=== PATIENT | male | born 1980 | race Two or more races ===

== ENCOUNTER 2024-07-12 13:26 | Emergency (ER) | payer OTHER ==
[~2024-07-12] VITALS: Ht 182.9 cm; Wt 72.6 kg
[2024-07-12] MEDS ORDERED: INDAPAMIDE1.25 MG PO (14:10)
[2024-07-12] MEDS ORDERED: NORVASC5 MG PO (14:10)
[2024-07-12] MEDS ORDERED: KETOROLAC TROMETHAMINE 10 MG TABLET PO STA (16:00)
[2024-07-12] MEDS ORDERED: KETOROLAC TROMETHAMINE 10 MG TABLET PO ONE (16:36)
[2024-07-12 16:42] LABS: HEMATOCRIT 44.9 % (39.0-48.0); HEMOGLOBIN 15.4 g/dL (13-16.00); MEAN CELL VOLUME 88.2 fL (80.0-100.00); MEAN CORPUSCULAR HEMOGLOBIN 30.3 pg (27.00-32.0); MEAN CORPUSCULAR HGB CONC 34.4 g/dl (32.0-36.0); PLATELET COUNT 227 K/uL (150-450); RED BLOOD COUNT 5.09 M/uL (4.00-6.00); RED CELL DISTRIBUTION WIDTH 13.2 % (11.5-14.5)
[2024-07-12] MEDS ORDERED: ZANAFLEX4 MG PO (20:03)
[2024-07-12] MEDS ORDERED: DICLOFENAC POTA50 MG PO (20:03)
== END 2024-07-12 20:28 | disposition home or self-care (01) ==
LOC: ER 13:27
PROVIDERS: General Practice
DX: M54.50 Low back pain, unspecified (principal); I10 Essential (primary) hypertension